=== PATIENT | male | born 1955 | race Caucasian/White ===

== ENCOUNTER 2016-08-20 09:43 | Inpatient (IN) ==
[2016-08-14 17:48] LABS: Basophils # (Auto) 0 K/mcL (0.0-0.3); Basophils % (Auto) 0.5 % (0.0-2.0); Blood Urea Nitrogen 12 mg/dl (8-23); Eosinophils # (Auto) 0.6 K/mcL (0.0-0.7); Eosinophils % (Auto) 8.5 % (0.0-7.0); Lymphocytes # (Auto) 1.6 K/mcL (1.5-4.8); Lymphocytes % (Auto) 23.5 % (15.5-49.0); Mean Corpuscular HGB Conc 32.6 g/dL (31.0-36.0); Mean Corpuscular Hemoglobin 27.7 pg (26.0-34.0); Monocytes # (Auto) 0.7 K/mcL (0.1-0.9); Monocytes % (Auto) 10.5 % (1.0-9.0); Platelet Count 254 K/mcL (140-440); RBC 5.24 M/mcL (4.50-5.90); Red Cell Distribution Width 13.3 % (11.5-14.5)
[2016-08-14 18:28] LABS: Appearance,Urine HAZY; Bilirubin,Urine NEG (NEG); Color,Urine YELLOW; Glucose,Urine (UA) NEGATIVE (NEG); Leukocyte Esterase,Urine NEG /uL (NEG); Nitrate,Urine NEG (NEG); Protein,Urine NEG (NEG); Specific Gravity,Urine 1.015 (1.000-1.035); Urine Blood NEG mg/dL (<0.03); Urobilinogen,Urine NEG (NEG)
[~2016-08-20 09:43] MED LIST: ACETAMINOPHEN 500 MG TABLET PO SCH; PREGABALIN 150 MG CAPSULE PO SCH; ceFAZolin 1 GM VIAL IV SCH; oxyCODONE 10 MG TAB.ER.12H PO SCH
[2016-08-20] MEDS ORDERED: ROPIVACAINE HCL/PF 30 ML VIAL IJ ONE (13:05)
[2016-08-20] MEDS ORDERED: fentaNYL 250 MCG/5 ML VIAL IV ONE (13:05)
[2016-08-20] MEDS ORDERED: PROPOFOL 200 MG/20 ML VIAL IV ONE (13:05)
[2016-08-20] MEDS ORDERED: MIDAZOLAM 5 MG/5 ML VIAL IV ONE (13:05)
[2016-08-20] MEDS ORDERED: DEXAMETHASONE 10 MG/ML VIAL IV ONE (13:05)
[2016-08-20] MEDS ORDERED: METOPROLOL TARTRATE 5 MG/5 ML VIAL IV ONE (13:05)
[2016-08-20] MEDS ORDERED: LIDOCAINE HCL/PF 100 MG/5 ML SYRINGE IV ONE (13:05)
[2016-08-20] MEDS ORDERED: SUCCINYLCHOLINE 20 MG/ML ML IV ONE (13:05)
[2016-08-20] MEDS ORDERED: TRANEXAMIC ACID 1,000 MG/10 ML VIAL IV ONE (13:05)
[2016-08-20] MEDS ORDERED: ONDANSETRON 4 MG/2 ML VIAL IV ONE (13:05)
[2016-08-20] MEDS ORDERED: GENTAMICIN SULFATE 800 MG/20 ML VIAL IR ONE (14:12)
[2016-08-20] MEDS ORDERED: MEPERIDINE 25 MG/ML SYRINGE IV PRN (14:13)
[2016-08-20] MEDS ORDERED: IPRATROPIUM/ALBUTEROL 3 ML AMPUL.NEB NEB PRN (14:13)
[2016-08-20] MEDS ORDERED: LACTATED RINGERS 250 ML IV PRN (14:13)
[2016-08-20] MEDS ORDERED: NALOXONE HCL 0.4 MG/ML VIAL IV PRN (14:13)
[2016-08-20] MEDS ORDERED: FLUMAZENIL 0.1 MG/ML ML IV PRN (14:13)
[2016-08-20] MEDS ORDERED: BENZOCAINE/MENTHOL 1 LOZENGE PO PRN ×2 (14:13→14:31)
[2016-08-20] MEDS ORDERED: diphenhydrAMINE 50 MG/ML VIAL IV PRN (14:13)
[2016-08-20] MEDS ORDERED: fentaNYL 100 MCG/2 ML VIAL IV PRN (14:13)
[2016-08-20] MEDS ORDERED: METHOCARBAMOL 1,000 MG/10 ML VIAL IV PRN (14:13)
[2016-08-20] MEDS ORDERED: PROMETHAZINE 25 MG/ML VIAL IV PRN (14:13)
[2016-08-20] MEDS ORDERED: ONDANSETRON 4 MG/2 ML VIAL IV PRN ×2 (14:13→14:31)
[2016-08-20] MEDS ORDERED: HYDROmorphone 2 MG/ML SYRINGE IV PRN ×2 (14:13→14:31)
[2016-08-20] MEDS ORDERED: LACTATED RINGERS 1,000 ML IV SCH (14:15)
[2016-08-20] MEDS ORDERED: BISACODYL 10 MG SUPP.RECT PR PRN (14:31)
[2016-08-20] MEDS ORDERED: FLEETS ADULT ENEMA PR PRN (14:31)
[2016-08-20] MEDS ORDERED: POLYETHYLENE GLYCOL 3350 17 GM PACKET PO PRN (14:31)
[2016-08-20] MEDS ORDERED: TRANEXAMIC ACID 1,000 MG/10 ML VIAL IV SCH (14:31)
[2016-08-20] MEDS ORDERED: MAGNESIUM HYDROXIDE 30 ML ORAL.SUSP PO PRN (14:31)
--- NOTE | 2016-08-20 14:37 | Brief Operative Note ---
Date of procedure: 08/20/16 Pre-op diagnosis: right shoulder djd with massive rca and bicep tear and ac joint djd Post-op diagnosis: same Procedure: right reverse tsa with bicep tenodesis and dce Grafts/Implants: Yes Anesthesia: GETA Complications: none Complications Description: 08/20/16 14:36 none Surgeon: Narendra Berger Product Expert: Arnulfo Ness Estimated blood loss (cc): 50 Specimens Removed/Pathology: none sent Condition: stable Disposition: PACU
--- NOTE | 2016-08-20 15:21 | XRay Report ---
CLINICAL INFORMATION: Postsurgical follow-up TECHNIQUE: Portable AP and Y views COMPARISON: None. FINDINGS: Status post right total shoulder arthroplasty. Alignment is anatomic. IMPRESSION: Status post right shoulder replacement surgery. Interpreted and Authenticated by: Mauro Anglin 08/20/16
--- NOTE | 2016-08-20 15:59 | Operative Note ---
DATE OF OPERATION: 08/20/2016 PREOPERATIVE DIAGNOSES: Right shoulder rotator cuff arthropathy and degenerative arthritis with acromioclavicular joint arthrosis and biceps tendinopathy and dislocation. POSTOPERATIVE DIAGNOSES: Right shoulder rotator cuff arthropathy and degenerative arthritis with acromioclavicular joint arthrosis and biceps tendinopathy and dislocation. PROCEDURE: Right reverse total shoulder with biceps tenodesis and open distal clavicle excision. SURGEON: Narendra Berger MD. UNDERWATER HUNTER: Arnulfo Ness PA-C. ANESTHESIA: General LMA anesthesia. COMPLICATIONS: None. ESTIMATED BLOOD LOSS: About 50 mL. BLOOD PRODUCTS GIVEN: None. IMPLANTS: A size 12 cementless stem with a standard thickness poly with metaglene standard size with three screws and a 6 mm offset with 2 mm of inferior offset. Implants were all well secured. COMPLICATIONS: None. DESCRIPTION OF PROCEDURE: The patient was brought to the operating room and put to sleep with general LMA anesthesia. Once asleep, the patient had the right shoulder sterilely prepped and draped in the usual sterile fashion. We had a time out. Ioban was placed over the skin and tranexamic acid and preop antibiotics were given. A 5-inch incision was made anteriorly in a curved saber type fashion. Once done, we identified the cephalic vein, and this was retracted laterally with the deltoid. Once done, we released the subscap or the remnants thereof. The biceps tendon was completely out of the groove, and cutting into the subscap the biceps at this point was released, and a biceps tenodesis to the pectoralis major was performed with #2 Ethibond and two [id number] stitches. Once done, we then released the inferior portion of the capsule around the neck, exposed the joint. The complete cuff was gone from the subscap, supraspinatus, infraspinatus. The teres minor appeared to be intact. At this point, we made our neck cut just below the surgical neck region. The ball was removed in 40 degrees of retroversion. Once completed, I then exposed the glenoid and performed a 360 degree capsulotomy around the glenoid. A central point on the glenoid was chosen and a central pin was placed. We reamed 36 and a 42 reamer. These were then removed. Excess bone was removed. We then placed the implant at 10 degrees of inclination. The metaglene central screw was 40 mm, two 32s and one 24 screw which were locked into place, gave excellent fixation. A 40 mm glenosphere was placed with 2 mm of the eccentricity inferiorly, 6 mm of offset was placed. Once done, I then prepared the humerus. We broached up to the size of 13, a 12 was countersunk. We cut our neck cut a little lower to balance the shoulder and equal tension. Once done, I then reduced the shoulder, excellent stability, normal tension for the deltoid. We irrigated thoroughly. We then placed the 12 stem with a standard thickness poly. This was reduced. Excellent range of motion, full stability. We irrigated thoroughly, closed the deltopectoral interval with #1 Vicryl. Skin was closed with 2-0 Vicryl and 3-0 Monocryl. Superiorly, I then made a separate incision to remove the distal 10 mm of the clavicle. A 2.5 cm incision was made. I identified the distal clavicle using retractors and removed 10 mm of distal clavicle using a reciprocating saw, protecting the deltoid and the supraspinatus musculature underneath using a Alexandro retractor. Once the bony fragment was removed, I then repaired the superior capsule and controlled bleeding with Bovie. Four #1 Vicryl stitches were placed over the superior capsule. The skin was closed with 2-0 Vicryl and 3-0 Monocryl again. Sterile bandage applied. A DonJoy sling was fitted and given at the end of the case. [email or web address] Job ID: [id number] Doc ID: [id number] Narendra Berger MD
[2016-08-20] MEDS: LACTATED RINGERS 1,000 ML IV SCH ×2 (16:17→23:45)
[2016-08-20] MEDS: oxyCODONE/APAP 5/325MG TABLET PO PRN (20:15)
[2016-08-20] MEDS: DOCUSATE SODIUM 100 MG CAPSULE PO SCH (20:48)
[2016-08-20] MEDS: ceFAZolin 1 GM VIAL IV SCH (20:48)
[2016-08-20] MEDS ORDERED: SENNOSIDES 1 TABLET PO SCH (21:00)
[2016-08-20] MEDS: 0.9 % SODIUM CHLORIDE 10 ML SYRINGE IV SCH (21:38)
[2016-08-21] MEDS: oxyCODONE/APAP 5/325MG TABLET PO PRN ×2 (02:23→08:05)
[2016-08-21] MEDS: ceFAZolin 1 GM VIAL IV SCH (04:54)
[2016-08-21] MEDS: 0.9 % SODIUM CHLORIDE 10 ML SYRINGE IV SCH (05:12)
--- NOTE | 2016-08-21 06:50 | Orthopedic Progress Note ---
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 Chief Complaint: [min pain and without c/o n and v] Objective Vital signs: Vital Signs Temp Pulse Pulse Resp BP Pulse Ox 08/21/16 04:16 16 97 08/21/16 03:07 97.4 F L 73 12 158/77 94 08/21/16 00:00 98.3 F 74 12 135/70 96 08/20/16 22:00 76 94 08/20/16 20:00 97.3 F L 73 12 134/81 95 08/20/16 17:25 165/92 92 08/20/16 16:55 167/92 97 08/20/16 16:35 168/95 97 08/20/16 16:22 165/97 98 08/20/16 16:20 164/96 97 08/20/16 16:05 163/97 98 08/20/16 15:46 66 20 172/92 92 08/20/16 15:30 97.3 F L 58 L 15 182/93 97 08/20/16 15:15 58 L 12 170/88 99 08/20/16 15:00 65 12 167/92 100 08/20/16 14:46 96.7 F L 67 12 142/72 98 08/20/16 14:31 66 08/20/16 10:20 97.8 F 16 152/94 98 Intake and Output 08/20/16 08/21/16 08/21/16 21:59 05:59 13:59 Intake Total 3520 / 3520 2032 / 2032 Output Total 500 / 500 1450 / 1450 Balance 3020 / 3020 583 / 583 Intake: IV 1999 933 / 933 Lactated Ringers 1,000 ml 933 / 933 @ 125 mls/hr IV .Q8H [facility] Rx#:[id number] Oral 1520 / 1520 1100 / 1100 Output: Void Amount 350 / 350 1450 / 1450 Estimated Blood Loss 150 / 150 Other: Meal Dinner Percent of Meal Consumed 100% Feeding Ability Independent Weight 198 lb 3.2 oz Intake & Output: Intake & Output 08/20/16 08/21/16 08/21/16 21:59 05:59 13:59 Intake Total 3520 / 3520 2032 / 2032 Output Total 500 / 500 1450 / 1450 Balance 3020 / 3020 583 / 583 Weight 198 lb 3.2 oz Intake: IV 1999 933 / 933 Lactated Ringers 1,000 ml 933 / 933 @ 125 mls/hr IV .Q8H [facility] Rx#:[id number] Oral 1520 / 1520 1100 / 1100 Output: Void Amount 350 / 350 1450 / 1450 Estimated Blood Loss 150 / 150 Other: Meal Dinner Percent of Meal Consumed 100% Feeding Ability Independent Incision: Yes healing Incision clean and dry: Yes Dressing: Yes clean Weight bearing status: full Neurological exam IM: Yes oriented X3, Yes neurovascular intact Extremities exam IM: Yes Foot pink and warm, Yes neurovascular intact - Labs CBC & BMP: 08/21/16 05:25 08/14/16 15:09 Labs: 08/21/16 08/14/16 05:25 15:09 Hgb 13.0 L 14.5 Hct 39.9 L 44.5
--- NOTE | 2016-08-21 06:52 | Discharge Summary ---
Ortho Discharge - TKA - Patient Instructions Diet: Regular Diet Activity: activity as tolerated, weight bearing as tolerated Total Knee Protocol: For Total Knee: Start ROM [place] with stationary bike or rocking chair. Work on gaining full extension of knee. Posterior dislocation precautions provided. Hip abductor strengthening and gait training instructions provided. Apply Cryocuff as instructed. Dressing Care: Aquacel Ag - leave on for 5 days - Follow Up Plan Disposition: Home, Self-Care Prognosis: Good Rehab Potential: Good I certify that the patient requires SNF services: No Overall status at discharge: patient is progressing back to baseline - Orders For Discharge Additional Discharge Orders: Physical Therapy at Discharge - TSA Location: Determined By Patient Brace/Splint Location: Determined By Patient
[2016-08-21] MEDS: DOCUSATE SODIUM 100 MG CAPSULE PO SCH (08:05)
[2016-08-21] MEDS: LACTATED RINGERS 1,000 ML IV SCH (08:30)
[2016-08-21] MEDS ORDERED: MULTIVIT,THER IRON,CA,FA & MIN 1 TABLET PO SCH (09:00)
== END 2016-08-21 10:15 | disposition home or self-care (01) | DRG 483 ==
LOC: MEDSUR 09:43
PROVIDERS: ADMIT Orthopaedic Surgery; ATTEND Orthopaedic Surgery